=== PATIENT | female | born 1965 | race Caucasian/White ===

== ENCOUNTER 2016-05-31 07:03 | Emergency (ER) | payer MEDICAID ==
[~2016-05-31] VITALS: Ht 157.5 cm; Wt 78.0 kg
[2016-05-31 07:06] VITALS: Ht 157.5 cm; Wt 78.0 kg
[2016-05-31] MEDS ORDERED: ACETAMINOPHEN 325 MG TAB PO ONE (08:00)
[2016-05-31] MEDS ORDERED: SOD CHLORIDE 0.9% 1,000 ML IV STA ×2 (08:04→09:02)
--- NOTE | 2016-05-31 08:25 | RADRPT ---
PROCEDURE: XR Chest. CLINICAL INDICATION: Syncope TECHNIQUE: Single frontal view of the chest. COMPARISON: No priorchest radiograph. FINDINGS: The lungs are clear. No pleural effusion or pneumothorax. The cardiomediastinal silhouette is unremarkable. No acute osseous abnormalities. IMPRESSION: No acute abnormalities. RPTAT: AADD .Mathew Morgan MD, MD Date Time Electronically viewed and signed by .Mathew Morgan MD, MD on 05/31/2016 08:25 .B/
[2016-05-31 08:33] LABS: BASOPHILS % 0.4 % (0.0-2.0); EOSINOPHILS % 0.5 % (0.0-7.0); HEMATOCRIT 39.6 % (37.0-47.0); HEMOGLOBIN 13.1 g/dl (12.0-16.0); LYMPHOCYTES # 0.8 10^3/ul (0.8-2.9); LYMPHOCYTES % 7.9 % (15.0-51.0); MEAN CORPUSCULAR HEMOGLOBIN 26.6 pg (29.0-33.0); MEAN CORPUSCULAR HGB CONC 33.2 g/dl (32.0-37.0); MEAN CORPUSCULAR VOLUME 80.2 fl (82.0-101.0); MEAN PLATELET VOLUME 9.6 fl (7.4-10.4); MONOCYTE # 0.5 10^3/ul (0.3-0.9); MONOCYTES % 5.3 % (0.0-11.0); NEUTROPHIL # 8.6 10^3/ul (1.6-7.5); NEUTROPHILS % 85.9 % (39.0-77.0); PLATELET COUNT 224 10^3/UL (140-440); RED BLOOD COUNT 4.94 10^6/ul (4.20-5.40); RED CELL DISTRIBUTION WIDTH 13.3 % (11.5-14.5)
[2016-05-31 08:37] LABS: CONDITION 1; LH ANALYZER COMMENTS 1
[2016-05-31 08:43] LABS: ALBUMIN 4.1 g/dl (3.3-4.9); CHLORIDE 98 mmol/L (97-110); POTASSIUM 4.3 mmol/L (3.5-5.1); SODIUM 138 mmol/L (135-144)
[2016-05-31 08:45] LABS: ANION GAP 17 (8-16); BILIRUBIN,INDIRECT 0.2 mg/dl (0-1.1); BILIRUBIN,TOTAL 0.2 mg/dl (0.2-1.3); CARBON DIOXIDE 27 mmol/L (21-31); CREATININE 0.63 mg/dl (0.44-1.00)
[2016-05-31 08:46] LABS: ALANINE AMINOTRANSFERASE 21 IU/L (13-69); ALBUMIN/GLOBULIN RATIO 1.05; ALKALINE PHOSPHATASE 121 IU/L (42-121); ASPARTATE AMINO TRANSFERASE 16 IU/L (15-46); BLOOD UREA NITROGEN 12 mg/dl (7-20); CALCIUM 9.1 mg/dl (8.4-10.2); GLUCOSE 328 mg/dl (70-220)
[2016-05-31 08:58] LABS: ADD UMIC YES; URINE BILIRUBIN (Dip) NEGATIVE (NEGATIVE); URINE BLOOD (Dip) TRACE (NEGATIVE); URINE COLOR LT. YELLOW (YELLOW); URINE KETONES (Dip) 40 (NEGATIVE); URINE LEUKOCYTE ESTERASE (Dip) TRACE (NEGATIVE); URINE NITRITE (Dip) NEGATIVE (NEGATIVE); URINE TOTAL PROTEIN (Dip) TRACE (NEGATIVE); URINE UROBILINOGEN (Dip) 0.2 E.U./dL (0.1-1.0)
[2016-05-31 09:07] LABS: BACTERIA,URINE MANY; URINE RBCS 0-2 /HPF (0)
[2016-05-31 09:18] LABS: TROPONIN-I < 0.012 ng/ml (0.00-0.12)
--- NOTE | 2016-05-31 10:02 | RADRPT ---
PROCEDURE: CT Brain without. CLINICAL INDICATION: Syncope TECHNIQUE: A CT of the brain was performed on a multi-slice CT scanner utilizing axial sections fr om the skull base through the vertex without contrast. Coronal and sagittal reconstructed images w ere provided. One or more of the following does reduction techniques were used: Automated exposure control; adjustment of the mA and/or kV according to patient size; use of the aorta of reconstructi on technique. Images were reviewed on a high-resolution PACS workstation. The exam CTDI = 44.84 mGy . The exam DLP = 630.20 mGy-cm. COMPARISON: None available FINDINGS: The ventricles and sulci are symmetric and normal in size and morphology. There is no evidence of i ntracranial hemorrhage, mass effect, edema or midline shift. No abnormal intra-axial or extra-axial fluid collections are seen. The mota/white matter differentiation is well preserved. The osseous structures and visualized sinuses are unremarkable. The mastoid air cells are clear. Th e surrounding soft tissue scalp and bony calvarium are intact and normal. IMPRESSION: 1. Unremarkable CT brain. RPTAT: AA .Mango Pop MD, MD Date Time Electronically viewed and signed by .Mango Pop MD, MD on 05/31/2016 10:01 .B/
[2016-05-31] MEDS ORDERED: NITR-58 PO (10:09)
[2016-05-31 10:17] VITALS: BP 118/60; PULSE 90
--- NOTE | 2016-05-31 10:46 | ERD ---
ER Documentation Chief Complaint Date/Time DATE: 05/31/16 TIME: 10:37 Chief Complaint dizziness few sec today. no other hx HPI This is a 51-year-old female presenting to the emergency room complaining of a syncopal episode that occurred this morning. Patient states that she woke up feeling a little dizzy, like the room was spinning and she walked and passed out. Patient states that she passed out for a couple seconds. Patient denies any nausea, vomiting, diarrhea, lethargy. She states that she does have a headache rating it 8 out of 10 describing as a global. Patient states that she did have flulike symptoms this past week including cough, congestion. Patient says she took NyQuil last night before bedtime. She denies any other medical problems and denies taking any medications. Denies any chest pain, shortness of breath ROS All systems reviewed and are negative except as per history of present illness. Medications Home Meds Active Scripts Nitrofurantoin Monohyd Macrocr* (Macrobid*) 100 Mg Capsr, 100 MG PO BID for 7 Days, CAP Prov:KIKE COREAS PA-C 05/31/16 Allergies Allergies: Coded Allergies: No Known Drug Allergies (Verified Allergy, Unknown, 05/31/16) PMhx/Soc Medical and Surgical Hx: pt denies Surgical Hx History of Surgery: No Anesthesia Reaction: No Hx Neurological Disorder: No Hx Respiratory Disorders: No Hx Cardiac Disorders: No Hx Psychiatric Problems: No Hx Miscellaneous Medical Probl: Yes (DM) Hx Alcohol Use: No Hx Substance Use: No Hx Tobacco Use: No Smoking Status: Never smoker Physical Exam Vitals Vital Signs Date Time Temp Pulse Resp B/P Pulse Ox O2 Delivery O2 Flow Rate FiO2 05/31/16 10:17 84 118/63 84 116/59 90 118/60 05/31/16 07:06 98.1 94 18 139/63 99 Physical Exam GENERAL: well-developed/well-nourished, in no apparent distress, non-toxic appearing HENT: NC/AT, bilateral tympanic membrane is normal with good cone of light, nares patent, oropharynx clear without exudates EYES: Conjunctiva normal, PERRLA, EOMI, no nystagmus noted NECK: Supple, no lymphadenopathy PULM: CTA bilaterally, no rales, rhonchi, or wheezing heard CV: Normal S1S2, RRR, good capillary refill GI: Soft, non-distended, normal bowel sounds, non-tender BACK: No midline tenderness, no masses, No CVAT EXT: No clubbing, cyanosis, or edema NEURO: Alert and orientated to person, place, and time. CN II-IIX intact. Gait and coordination were normal. Hand artist model strength were equal and within normal limits SKIN: Intact, normal turgor PSYCH: Normal mood and mentation, patient denied SI Result Diagram: 05/31/16 0800 05/31/16 0800 Results 24 hrs Laboratory Tests Test 05/31/16 07:56 05/31/16 08:00 05/31/16 08:03 05/31/16 10:21 Urine Bacteria MANY Urine Bilirubin NEGATIVE Urine Clarity CLEAR Urine Color LT. YELLOW Urine Epithelial Cells MANY Urine Glucose 0.5%% Urine Hemoglobin TRACE Urine Ketones 40 Urine Leukocyte Esterase TRACE Urine Microscopic RBC 0-2/HPF Urine Microscopic WBC 10-25/HPF Urine Nitrite NEGATIVE Urine Specific [place] 1.010 Urine Total Protein TRACE Urine Urobilinogen 0.2 E.U./dL Urine pH 7.0 Alanine Aminotransferase (ALT/SGPT) 21IU/L Albumin 4.1g/dl Albumin/Globulin Ratio 1.05 Alkaline Phosphatase 121IU/L Anion Gap 17 Aspartate Amino Transf (AST/SGOT) 16IU/L Basophils # 0.010^3/ul Basophils % 0.4% Blood Morphology Comment Blood Urea Nitrogen 12mg/dl Calcium Level 9.1mg/dl Carbon Dioxide Level 27mmol/L Chloride Level 98mmol/L Creatinine 0.63mg/dl Direct Bilirubin 0.00mg/dl Eosinophils # 0.010^3/ul Eosinophils % 0.5% Globulin 3.90g/dl Glucose Level 328mg/dl Hematocrit 39.6% Hemoglobin 13.1g/dl Indirect Bilirubin 0.2mg/dl Lipase 80U/L Lymphocytes # 0.810^3/ul Lymphocytes % 7.9% Mean Corpuscular Hemoglobin 26.6pg Mean Corpuscular Hemoglobin Concent 33.2g/dl Mean Corpuscular Volume 80.2fl Mean Platelet Volume 9.6fl Monocytes # 0.510^3/ul Monocytes % 5.3% Neutrophils # 8.610^3/ul Neutrophils % 85.9% Nucleated Red Blood Cells # 0.010^3/ul Nucleated Red Blood Cells % 0.0/100WBC Platelet Count 49155^3/UL Potassium Level 4.3mmol/L Red Blood Count 4.9410^6/ul Red Cell Distribution Width 13.3% Sodium Level 138mmol/L Total Bilirubin 0.2mg/dl Total Protein 8.0g/dl Troponin I < 0.012ng/ml White Blood Count 10.010^3/ul Bedside Glucose 331mg/dL 277mg/dL Current Medications Medications (Trade) Dose Ordered Sig/Deanne Route PRN Reason Start Time Stop Time Status Last Admin Dose Admin Acetaminophen 650 mg 650 mg ONCE ONCE PO 05/31/16 08:00 05/31/16 08:01 DC 05/31/16 08:38 Sodium Chloride 1,000 ml @ 1,000 mls/hr Q1H STAT IV 05/31/16 08:04 05/31/16 09:03 DC 05/31/16 08:38 Sodium Chloride (NS) 1,000 ml @ 1,000 mls/hr Q1H STAT IV 05/31/16 09:02 05/31/16 10:01 DC 05/31/16 09:20 Procedures/MDM This is a 51-year-old female presenting to the emergency room with a syncopal episode that occurred earlier today. I have considered reflex, neurological, and cardiopulmonary conditions. IV access was established. CBC did not show any evidence of leukocytosis or anemia. CMP showed an elevation in glucose at 328, patient denies any history of diabetes, this is most likely a new onset of diabetes. Patient was given 2 L of fluid and her glucose level went down to 77. I discussed with patient that she needs to follow-up tomorrow with her primary care physician for evaluation of diabetes. I will low suspicion for DKA , hyperosmolar hyperglycemia state, or metabolic acidosis. There was no evidence of renal or liver abnormalities. Urinalysis that showed trace leukocyte esterase with white blood cell count and bacteria therefore she will be treated for a urinary tract infection outpatient with Macrobid. Chest x-ray did not show any acute abnormalities. There is no evidence of infiltrates, pneumothorax or pleural effusion. EKG did not show any evidence of STEMI or cardiac dysrhythmia. A CT of the head was done and radiologist stated was unremarkable. Patient's syncopal symptoms have stabilized while in the department and are suitable for outpatient follow up. Exam and work up not consistent w/ ischemia, arrhythmia, stroke, PE or dissection. Patient did not meet high risk criteria for syncope. I have given strict precautions to return to the ER for any worsening signs or symptoms. Patient understood and agree with plan. I have discussed this case with , who states to have patient follow-up with PMD to place patient on meds for diabetes, he agrees with my plan above EKG: read and signed off by myself and Rate/Rhythm: 97 bpm NSR QRS, ST, T-waves: No changes consistent w/ acute ischemia, T wave inversion in V1 Impression: No evidence of ischemia or arrhythmia SF Syncope rule: Defines high-risk criteria for patients with syncope CHF history Hct <30% Abnormal EKK (or any new EKG changes) SOB Systolic BP <90 mmHg at triage Departure Diagnosis: Primary Impression: Syncope Syncope type: unspecified Qualified Code: R55 - Syncope, unspecified syncope type Additional Impressions: Hyperglycemia UTI (urinary tract infection) Urinary tract infection type: acute cystitis Hematuria presence: without hematuria Qualified Code: N30.00 - Acute cystitis without hematuria Condition: Fair Patient Instructions: Hyperglycemia (High Blood Sugar), Understanding Urinary Tract Infections (UTIs), Causes of Syncope, Syncope, Unk Cause Referrals: [facility] Usted se stauffer hecho un examen mdico de control que le indica que no est en marina condicin que requiera tratamiento urgente en el Departamento de Emergencia. Un estudio ms profundo y el tratamiento de pisano condicin pueden esperar sin ningn riesgo hasta que usted sea atendida/o en el consultorio de pisano mdico o marina cl domingo. Es responsabilidad suya arreglar marina priscilla para el seguimiento del karina. MANEJO DE CONDICIONES NO URGENTES EN EL FUTURO 1) Si usted tiene un mdico de atencin primaria: Usted debera llamar a pisano mdico de atencin primaria antes de venir al departamento de emergencia. Despus de las horas de consultorio, pisano doctor o pisano asociado/a est disponible por telfono. El mdico o enfermero de liz en el servicio telefnico puede asesorarle por sreekanth medio para atender el problema, o karina contrario se puede programar marina priscilla. 2) Si usted no tiene un mdico de atencin primaria: Llame al mdico o clnica de referencia que aparece abajo zachary las horas de consultorio para hacer marina priscilla para que le vean. CLINICAS: [facility] [phone] [id number] [facility] [id number] [facility] [phone] [place] [phone] [place] [phone] [place] [id number] [phone] Additional Instructions: Visite a pisano mdico maana para un EXAMEN.Regrese a estas instalaciones si no se mejora dorie esperbamos o dorie le dijimos. [place] toda la medicina sowmya y dorie se le indic. Regrese a estas instalaciones si no se mejora dorie esperbamos o dorie le dijimos. KIKE COREAS PA-C May 31, 2016 10:46
== END 2016-05-31 10:49 | disposition home or self-care (01) ==
LOC: FTE 07:03
DX: R55 Syncope and collapse (principal); E11.65 Type 2 diabetes mellitus with hyperglycemia; N30.00 Acute cystitis without hematuria
CPT/HCPCS: 70450; 71010; 80053; 81001; 82962; 83690; 84484; 85025; 93005; J7030; Z7502; Z7610; 81003